=== PATIENT | female | born 1990 ===

== ENCOUNTER 2021-09-01 10:55 | Emergency (ER) | payer MEDICAID, OTHER ==
[2021-09-01] MEDS ORDERED: Ketorolac 60 MG/2 ML SDV IM ONE (12:06)
== END 2021-09-01 13:20 | disposition home or self-care (01) ==
LOC: MW.ED 10:55
DX: N30.00 Acute cystitis without hematuria (principal); M65.9 Synovitis and tenosynovitis, unspecified; M65.311 Trigger thumb, right thumb; Z86.16 Personal history of COVID-19
CPT/HCPCS: 73130; 81001; 96372; 99284; J1885; 99283